=== PATIENT | male | born 2000 | race African-American/Black ===

== ENCOUNTER 2020-05-01 11:10 | Emergency (ER) | payer SELFPAY | END 2020-05-01 11:49 | disposition left against medical advice (07) | LOC: ER 11:10 | DX: Z53.21 Procedure and treatment not carried out due to patient leaving prior to being seen by health care provider (principal) ==

== ENCOUNTER 2020-05-03 09:20 | Emergency (ER) | payer MEDICAID ==
[~2020-05-03] VITALS: Ht 182.9 cm; Wt 64.0 kg
[2020-05-03 10:31] LABS: CLARITY URINE CLOUDY (CLEAR); COLOR URINE YELLOW (YELLOW); KETONES URINE NEGATIVE (NEGATIVE); LEUKOCYTE ESTERASE URINE 3+ (NEGATIVE); NITRITE URINE NEGATIVE (NEGATIVE); OCCULT BLOOD URINE 3+ (NEGATIVE); PROTEIN URINE 1+ (NEGATIVE); SPECIFIC GRAVITY URINE 1.011 (1.005-1.030)
[2020-05-03] MEDS ORDERED: LIDOCAINE HCL 1% 20ML VIAL (Pyxis) INJ INFIL ONE (10:45)
[2020-05-03] MEDS ORDERED: AZITHROMYCIN 500 MG TABLET PO ONE (10:45)
[2020-05-03] MEDS ORDERED: CEFTRIAXONE SODIUM 500 MG/VIAL IM ONE (10:45)
[2020-05-03 11:51] VITALS: BP 145/90
== END 2020-05-03 11:51 | disposition home or self-care (01) ==
LOC: ER 09:20
DX: N39.0 Urinary tract infection, site not specified (principal); R31.9 Hematuria, unspecified
CPT/HCPCS: 81003; 82962; 87086; 96372; 99283; J0696; J3490